=== PATIENT | female | born 1975 | race Caucasian/White ===

== ENCOUNTER 2017-06-23 19:17 | Emergency (ER) | payer MEDICAID ==
[~2017-06-23] VITALS: Ht 162.6 cm; Wt 68.8 kg
[~2017-06-23 19:17] MED LIST: NONE PER PT
[2017-06-23 19:18] VITALS: BP 119/71
[2017-06-23] MEDS ORDERED: IBUPROFEN 200 MG TABLET ONE (19:41)
[2017-06-23] MEDS ORDERED: IBUPROFEN 200 MG TABLET PO ONE (20:00)
== END 2017-06-23 20:32 | disposition home or self-care (01) ==
LOC: ED 19:49
DX: S93.611A Sprain of tarsal ligament of right foot, initial encounter (principal); X50.1XXA Overexertion from prolonged static or awkward postures, initial encounter; Y93.9 Activity, unspecified; Y99.8 Other external cause status; Y92.099 Unspecified place in other non-institutional residence as the place of occurrence of the external cause
CPT/HCPCS: 99284

== ENCOUNTER → 2018-04-15 | Outpatient (CLI) | payer MEDICAID | END | disposition home or self-care (01) | LOC: CFH 08:28 | PROVIDERS: ATTEND Nurse Practitioner Family | DX: R55 Syncope and collapse (principal); R51 Headache | CPT/HCPCS: 70551 ==

== ENCOUNTER 2020-05-30 16:40 | Emergency (ER) | payer MEDICAID ==
[~2020-05-30] VITALS: Ht 162.6 cm; Wt 69.5 kg
--- NOTE | 2020-05-30 16:52 | NUR ---
TRIAGE: NIL WHEN CALLED FOR TRIAGE
--- NOTE | 2020-05-30 17:55 | NUR ---
Assumed care of patient. C/O generalized ABD discomfort x several weeks. C/O constipation initially followed diarrhea. Patient reports feeling of something being stuck in her rectum and bloody stool. NAD. Will continue to monitor.
[2020-05-30] MEDS ORDERED: SODIUM CHLORIDE FLUSH 10ML SYR IVF ONE (18:00)
[2020-05-30 18:25] LABS: BASOPHILS # (AUTO) 0.12 x10^3/uL (0-0.1); BASOPHILS % (AUTO) 1 % (0-1); EOSINOPHILS # (AUTO) 0.09 x10^3/uL (0-0.4); EOSINOPHILS % (AUTO) 1 % (1-7); LYMPHOCYTES # (AUTO) 3.57 x10^3/uL (1-3.4); LYMPHOCYTES % (AUTO) 37 % (22-44); MD NO; MEAN CORPUSCULAR HEMOGLOBIN 31.6 pg (27.0-34.8); MEAN CORPUSCULAR HGB CONC 33.7 g/dL (32.4-35.8); MEAN CORPUSCULAR VOLUME 93.6 fL (80-100); MEAN PLATELET VOLUME 7.9 fL (7.4-10.4); MONOCYTES # (AUTO) 0.59 x10^3/uL (0.2-0.8); MONOCYTES % (AUTO) 6 % (2-9); NEUTROPHILS # (AUTO) 5.35 x10^3/uL (1.8-6.8); NEUTROPHILS % (AUTO) 55 % (42-75); PLATELET COUNT 361 x10^3/uL (130-400); RED BLOOD COUNT 4.69 x10^6/uL (3.82-5.3); RED CELL DISTRIBUTION WIDTH 13.3 % (9.6-15.2)
[2020-05-30 18:33] LABS: ALANINE AMINOTRANSFERASE 32 U/L (12-78); ANION GAP 6 mmol/L (5-15); CHLORIDE 105 mmol/L (98-107)
[2020-05-30 18:36] LABS: ALKALINE PHOSPHATASE 101 U/L (45-117); BILIRUBIN,TOTAL 0.4 mg/dL (0.2-1.0); TOTAL PROTEIN 9.3 g/dL (6.4-8.2)
[2020-05-30 18:38] LABS: CALCIUM 9.2 mg/dL (8.5-10.1)
--- NOTE | 2020-05-30 18:56 | NUR ---
Patient in CT.
[2020-05-30] MEDS ORDERED: OMNIPAQUE 350 MG/ML, 100ML BOTTLE ONE (19:05)
[2020-05-30 19:25] VITALS: BP 124/59
--- NOTE | 2020-05-30 19:25 | NUR ---
Steady gait to the restroom. VSS.
[2020-05-30 19:30] LABS: MICROSCOPIC NOT IND
--- NOTE | 2020-05-30 20:30 | NUR ---
Patient/Caregiver given discharge instructions and they have confirmed that they understand the instructions. Patient ambulatory with steady gait.
== END 2020-05-30 20:31 | disposition home or self-care (01) ==
LOC: ED 18:46
DX: K58.8 Other irritable bowel syndrome (principal); K76.89 Other specified diseases of liver
CPT/HCPCS: 36415; 74177; 80053; 81003; 85025; 99285; Q9967